=== PATIENT | female | born 1960 | race Two or more races ===

== ENCOUNTER 2024-08-30 05:11 | Day surgery (SDC) | payer OTHER ==
[2024-08-24 12:44] VITALS: BMI 28.7
[2024-08-30] MEDS ORDERED: ONDANSETRON 4 MG/2 ML VIAL IVPUSH PRN (10:29)
[2024-08-30] MEDS ORDERED: LACTATED RINGERS SOLUTION 1,000 ML IV SCH (10:30)
[2024-08-30] MEDS ORDERED: PROPOFOL 20 ML ONE (12:04)
[2024-08-30] MEDS ORDERED: MIDAZOLAM HCL 2 MG/2 ML SINGLE DOSE VIAL ONE (12:38)
[2024-08-30] MEDS ORDERED: LIDOCAINE HCL/PF 2% SDV 5ML VIAL ONE (12:44)
[2024-08-30] MEDS ORDERED: ONDANSETRON 4 MG/2 ML VIAL ONE (12:44)
[2024-08-30] MEDS ORDERED: DEXAMETHASONE SOD PHOSPHATE 4 MG/1 ML VIAL ONE (12:44)
[2024-08-30] MEDS: oxyCODONE HCL 5 MG TABLET PO PRN (16:29)
[2024-08-30] MEDS ORDERED: oxyCODONE HCL 5 MG TABLET ONE (16:32)
[2024-08-30 16:41] VITALS: RESP 16; TEMP 97.8
[2024-08-30 17:01] VITALS: BP 145/91; PULSE 79
== END 2024-08-30 17:40 | disposition home or self-care (01) ==
LOC: JASU-SURG 05:11
PROVIDERS: ATTEND Obstetrics & Gynecology
PROC: 0UBC7ZX Excision of Cervix, Via Natural or Artificial Opening, Diagnostic (ICD-10-PCS; principal; 2024-08-30 12:00)
DX: N87.9 Dysplasia of cervix uteri, unspecified (principal)
CPT/HCPCS: 88305-TC; 88307-TC; 88341-TC; 88342-TC; 94760